=== PATIENT | male | born 1990 | race Caucasian/White ===

== ENCOUNTER 2017-12-07 19:27 | Day surgery (SDC) | payer OTHER ==
[~2017-12-07] VITALS: Ht 167.6 cm; Wt 124.3 kg
[~2017-12-07 19:27] MED LIST: PERCOCET 5-3251 EACH PO; ZYRTEC10 M3 PO
[2017-12-07 20:19] LABS: ABSOLUTE BASOPHIL COUNT 0.1 /CUMM (0.0-0.2); ABSOLUTE EOSINOPHIL COUNT 0 /CUMM (0.0-0.7); ABSOLUTE GRANULOCYTE CT 16.9 /CUMM (1.4-6.5); ABSOLUTE LYMPH COUNT 1.4 /CUMM (1.2-3.4); ABSOLUTE MONOCYTE COUNT 0.7 /CUMM (0.10-0.60); BASOPHIL % 0.4 % (0.0-2.0); EOSINOPHIL % 0.1 % (0-5); HEMATOCRIT 42.7 % (42-52); MEAN CORPUSCULAR HGB 29.5 PG (27.0-31.0); MEAN CORPUSCULAR HGB CONC 34.6 G/DL (33.0-37.0); MEAN CORPUSCULAR VOLUME 85.3 FL (80.0-94.0); MEAN PLATELET VOLUME 7.2 FL (7.4-10.4); PLATELET COUNT 350 /CUMM (130-400); RBC DISTRIBUTION WIDTH 12.8 % (11.5-14.5)
[2017-12-07 20:25] LABS: GRANULOCYTE % 88.7 % (42.2-75.2)
--- NOTE | 2017-12-07 21:25 | ED GI/GU/ABDOMINAL COMPLAINT ---
History of Present Illness General Chief Complaint: Abdominal Pain/Flank Pain Stated Complaint: RIGHT LQ PAIN Source: patient, family Exam Limitations: no limitations Vital Signs & Intake/Output Vital Signs & Intake/Output Vital Signs Date Time Temp Pulse Resp B/P B/P Pulse O2 O2 Flow FiO2 Mean Ox Delivery Rate 12/07 2018 100.1 90 20 140/84 98 Allergies Coded Allergies: lactase (02/03/16) Reconcile Medications Cetirizine HCl (Zyrtec) 10 MG TABLET 1 TAB PO DAILY ALLERGIES (Reported) Oxycodone HCl/Acetaminophen (Percocet 5-325 MG Tablet) 1 EACH TABLET 1-2 TAB PO Q6P PRN pain Triage Note: PER PT ABD PAIN TO RLQ SINCE 1045, GOTTEN PROGRESSIVELY WORSE THROUGHOUT DAY +N/V NO DIARRHEA PT WITH TEMP 100.1 IN TRIAGE LABS DRAWN AND URINE REQUESTED Triage Nurses Notes Reviewed? yes HPI: Patient presents with worsening right lower quadrant pain since yesterday. Positive nausea vomiting. No diarrhea. The pain is sharp and crampy in nature. There is no radiation. There are no aggravating or mitigating factors. He rates the pain at 7 out of 10. Past History Travel History Traveled to [place] past 21 day No Medical History Any Pertinent Medical History? none Neurological: NONE EENT: NONE Cardiovascular: NONE Respiratory: NONE Gastrointestinal: NONE Hepatic: NONE Renal: NONE Musculoskeletal: NONE Psychiatric: NONE Endocrine: NONE Surgical History Surgical History: non-contributory Psychosocial History What is your primary language Kinyarwanda Tobacco Use: Never used ETOH Use: occasional use Illicit Drug Use: denies illicit drug use Family History Hx Contributory? No Review of Systems Review of Systems Constitutional: Reports: no symptoms. EENTM: Reports: no symptoms. Respiratory: Reports: no symptoms. Cardiovascular: Reports: no symptoms. GI: Reports: see HPI, abdominal pain, nausea, vomiting. Genitourinary: Reports: no symptoms. Musculoskeletal: Reports: no symptoms. Skin: Reports: no symptoms. Neurological/Psychological: Reports: no symptoms. Hematologic/Endocrine: Reports: no symptoms. Immunologic/Allergic: Reports: no symptoms. All Other Systems: Reviewed and Negative Physical Exam Physical Exam General Appearance: well developed/nourished, alert, awake, anxious, moderate distress Head: atraumatic, normal appearance Eyes: Bilateral: PERRL, EOMI. Ears, Nose, Throat, Mouth: hearing grossly normal, DRY MUCOSA Neck: normal inspection, supple, full range of motion Respiratory: normal breath sounds, chest non-tender, no respiratory distress, lungs clear Cardiovascular: regular rate/rhythm, normal peripheral pulses Gastrointestinal: normal bowel sounds, soft, tenderness, NO REBOUND OR GUARDING Back: normal inspection, normal range of motion Extremities: normal range of motion Neurologic/Psych: no motor/sensory deficits, awake, alert, oriented x 3, normal gait, normal mood/affect Skin: intact, normal color, warm/dry Core Measures ACS in differential dx? No Sepsis Present: No Sepsis Focused Exam Completed? No Progress Differential Diagnosis: appendicitis, bowel obstruction, ureterolithiasis, UTI/ pyelo Plan of Care: Orders Procedure Date/time Status URINALYSIS 12/07 1932 Complete COMPREHENSIVE METABOLIC PANEL 12/07 1932 Complete CBC WITHOUT DIFFERENTIAL 12/07 1932 Complete Current Medications Sig/Ryan Start time Last Medication Dose Stop Time Status Admin Ampicillin Sodium/ 3,000 MG ONCE ONE 12/07 224 AC Sulbactam Sodium 12/07 2314 (Unasyn) Sodium Chloride 100 ML (Normal Saline 0.9%) Laboratory Tests 12/07/172038: Urinalysis LIGHT H, Urine Color YEL, Urine Clarity CLEAR, Urine pH 6.0, Ur Specific [place] >= 1.030, Urine Protein TRACE H, Urine Ketones NEG, Urine Nitrite NEG, Urine Bilirubin NEG, Urine Urobilinogen 0.2, Ur Leukocyte Esterase NEG, Ur Microscopic SEDIMENT EXAMINED, Urine RBC RARE, Urine WBC RARE, Urine Bacteria RARE H, Urine Mucus MOD H, Urine Hemoglobin NEG, Urine Glucose NEG 12/07/172010: Anion Gap 15, Estimated GFR > 60, BUN/Creatinine Ratio 14.4, Glucose 113 H, Calcium 10.1, Total Bilirubin 0.6, AST 37, ALT 63, Alkaline Phosphatase 46, Total Protein 8.1, Albumin 4.8, Globulin 3.3, Albumin/Globulin Ratio 1.5, CBC w Diff MAN DIFF ORDERED, RBC 5.00, MCV 85.3, MCH 29.5, MCHC 34.6, RDW 12.8, MPV 7.2 L, Gran % 88.7 H, Lymphocytes % 7.2 L, Monocytes % 3.6, Eosinophils % 0.1 , Basophils % 0.4, Absolute Granulocytes 16.9 H, Segmented Neutrophils 87 H, Band Neutrophils 2, Absolute Lymphocytes 1.4, Lymphocytes 5 L, Monocytes 6, Absolute Monocytes 0.7 H, Absolute Eosinophils 0, Absolute Basophils 0.1, Platelet Estimate VERIFIED BY SMEAR, Normocytic RBCs VERIFIED, Normochromic RBCs VERIFIED, Fld Total RBCs Counted 100 Diagnostic Imaging: Viewed by Me: CT Scan. Discussed w/RAD: CT Scan. Radiology Impression: PATIENT: MADELINE BAY PRESENT AGE: 26 PATIENT ACCOUNT NO: [id number] : 89 LOCATION: [facility] ORDERING PHYSICIAN: Blessing Montana MD SERVICE DATE: 12/07/17 EXAM TYPE: CAT - CT ABD & PELVIS W IV CONTRAST EXAMINATION: CT ABDOMEN AND PELVIS WITH CONTRAST CLINICAL INFORMATION: RLQ PAIN COMPARISON: None. TECHNIQUE: Multidetector volumetric imaging was performed from the superior aspect of the liver through the pubic symphysis following administration of 95 ml of Optiray 320 Sagittal and coronal reformatted images were obtained on the technologist workstation. DLP: 1203 mGy-cm FINDINGS: LUNG BASES: The visualized lung bases are unremarkable. LIVER, GALLBLADDER, AND BILIARY TREE: The liver is normal in size, shape, and attenuation. No focal hepatic lesion or biliary ductal dilatation is present. The gallbladder is unremarkable with no evidence of radiopaque gallstones, gallbladder wall thickening, or obvious pericholecystic inflammatory changes. PANCREAS: Unremarkable. SPLEEN: Unremarkable. ADRENAL GLANDS: Unremarkable. KIDNEYS AND URETERS: The kidneys are normal in size, shape , and attenuation. No hydronephrosis, hydroureter, or calculi seen. No perinephric stranding. BLADDER: Unremarkable. GASTROINTESTINAL TRACT: The small and large bowel are unremarkable. The appendix is abnormally thickened measuring up to 1 cm in size with mild periappendiceal inflammatory change consistent with early appendicitis. I do not appreciate any periappendiceal abscess or free air. ABDOMINAL WALL: No significant hernia is appreciated. LYMPHOVASCULAR STRUCTURES: No lymphadenopathy. The aorta is unremarkable. PELVIC VISCERA: Unremarkable. OSSEOUS STRUCTURES: Unremarkable. IMPRESSION: Abnormal thickened appendix with mild paraparesis inflammatory changes in the right lower quadrant concerning for acute appendicitis. 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 <Electronically signed in Other Vendor System> SIGNED BY: Sourav Silva MD 12/07/170 Initial ED EKG: none Departure Departure Disposition: STILL A PATIENT Condition: Stable Clinical Impression Primary Impression: Appendicitis Referrals: Unknown (PCP/Family) Departure Forms: Customer Survey General Discharge Information Observation Note Spoke With: Evans DUFF,Bryan Luis Physician Advisor Notified: ZINA DUFF,BLESSING Larry Place Patient In: Non-ED OBS Care Area Rationale for Observation: My rational for observation is as follows [nothing by mouth, IV fluids, IV antibiotics, surgical intervention].
--- NOTE | 2017-12-07 22:24 | CT SCAN REPORT ---
EXAMINATION: CT ABDOMEN AND PELVIS WITH CONTRAST CLINICAL INFORMATION: RLQ PAIN COMPARISON: None. TECHNIQUE: Multidetector volumetric imaging was performed from the superior aspect of the liver through the pubic symphysis following administration of 95 ml of Optiray 320 Sagittal and coronal reformatted images were obtained on the technologist workstation. DLP: 1203 mGy-cm FINDINGS: LUNG BASES: The visualized lung bases are unremarkable. LIVER, GALLBLADDER, AND BILIARY TREE: The liver is normal in size, shape, and attenuation. No focal hepatic lesion or biliary ductal dilatation is present. The gallbladder is unremarkable with no evidence of radiopaque gallstones, gallbladder wall thickening, or obvious pericholecystic inflammatory changes. PANCREAS: Unremarkable. SPLEEN: Unremarkable. ADRENAL GLANDS: Unremarkable. KIDNEYS AND URETERS: The kidneys are normal in size, shape, and attenuation. No hydronephrosis, hydroureter, or calculi seen. No perinephric stranding. BLADDER: Unremarkable. GASTROINTESTINAL TRACT: The small and large bowel are unremarkable. The appendix is abnormally thickened measuring up to 1 cm in size with mild periappendiceal inflammatory change consistent with early appendicitis. I do not appreciate any periappendiceal abscess or free air. ABDOMINAL WALL: No significant hernia is appreciated. LYMPHOVASCULAR STRUCTURES: No lymphadenopathy. The aorta is unremarkable. PELVIC VISCERA: Unremarkable. OSSEOUS STRUCTURES: Unremarkable. IMPRESSION: Abnormal thickened appendix with mild paraparesis inflammatory changes in the right lower quadrant concerning for acute appendicitis.
--- NOTE | 2017-12-07 23:28 | History & Physical Pre-Op ---
Twila Pratt 12/07/172320: General Information and HPI MD Statement: I have seen and personally examined MADELINE BAY and documented this H&P. The patient is a 26 year old M who presented with a patient stated chief complaint of [].ABDOMINAL PAIN Source of Information: patient Exam Limitations: no limitations History of Present Illness: Pt is a 26yo male who presents to the ED with 12 hours of abdominal pain and nausea. He was feeling fine this morning then suddenly around 11 am began having abdominal cramping which he thought was constipation. He had a small bm but later became nauseasted and vomited x 3 today. He was unable to keep any food down but did keep down some gatorade. His pain has never completely resolved and worsened at times to 8/10. He presented to the ED and a CT revealed inflammatory changes around a thickened appendix. Allergies/Medications Home Med list Cetirizine HCl (Zyrtec) 10 MG TABLET 1 TAB PO DAILY ALLERGIES (Reported) Oxycodone HCl/Acetaminophen (Percocet 5-325 MG Tablet) 1 EACH TABLET 1-2 TAB PO Q6P PRN pain Past History Medical History Neurological: NONE EENT: NONE Cardiovascular: NONE Respiratory: NONE Gastrointestinal: NONE Hepatic: NONE Renal: NONE Musculoskeletal: NONE Psychiatric: NONE Endocrine: NONE Other Medical Hx: Negative Surgical History Pertinent Surgical History: Left knee ACL Past Family/Social History Psychosocial History Primary Language: Greek Smoking Status: Never Smoked ETOH Use: occasional use Illicit Drug Use: denies illicit drug use Functional Ability ADLs Independent: dressing, eating, toileting, bathing. Ambulation: independent Employment History Employment: Employed Review of Systems Review of Systems: See HPI, otherwise unremarkable Exam & Diagnostic Data Last 24 Hrs of Vital Signs/I&O Vital Signs Date Time Temp Pulse Resp B/P B/P Pulse O2 O2 Flow FiO2 Mean Ox Delivery Rate 12/07 2320 97.9 87 16 117/77 97 Room Air 12/07 2018 100.1 90 20 140/84 98 Physical Exam: General: alert and oriented times three chest: clear bilaterally no r/r/w, RRR Abd: soft, nondistended, tender only to moderate-deep palpation of RLQ, otherwise nontender, good bs Ext: warm, 2+ DP bilaterally Last 24 Hrs of Labs/Bishop: Laboratory Tests 12/07/172038: Urinalysis LIGHT H, Urine Color YEL, Urine Clarity CLEAR, Urine pH 6.0, Ur Specific [place] >= 1.030, Urine Protein TRACE H, Urine Ketones NEG, Urine Nitrite NEG, Urine Bilirubin NEG, Urine Urobilinogen 0.2, Ur Leukocyte Esterase NEG, Ur Microscopic SEDIMENT EXAMINED, Urine RBC RARE, Urine WBC RARE, Urine Bacteria RARE H, Urine Mucus MOD H, Urine Hemoglobin NEG, Urine Glucose NEG 12/07/172010: Anion Gap 15, Estimated GFR > 60, BUN/Creatinine Ratio 14.4, Glucose 113 H, Calcium 10.1, Total Bilirubin 0.6, AST 37, ALT 63, Alkaline Phosphatase 46, Total Protein 8.1, Albumin 4.8, Globulin 3.3, Albumin/Globulin Ratio 1.5, CBC w Diff MAN DIFF ORDERED, RBC 5.00, MCV 85.3, MCH 29.5, MCHC 34.6, RDW 12.8, MPV 7.2 L, Gran % 88.7 H, Lymphocytes % 7.2 L, Monocytes % 3.6, Eosinophils % 0.1 , Basophils % 0.4, Absolute Granulocytes 16.9 H, Segmented Neutrophils 87 H, Band Neutrophils 2, Absolute Lymphocytes 1.4, Lymphocytes 5 L, Monocytes 6, Absolute Monocytes 0.7 H, Absolute Eosinophils 0, Absolute Basophils 0.1, Platelet Estimate VERIFIED BY SMEAR, Normocytic RBCs VERIFIED, Normochromic RBCs VERIFIED, Fld Total RBCs Counted 100 Diagnostic Data Other Results CT Abd: Abnormal thickened appendix with mild paraparesis inflammatory changes in the right lower quadrant concerning for acute appendicitis. Assessment/Plan Assessment/Plan: 26yo male with acute appendicitis keep in observation for Dr Krueger OR in am or sooner if needed serial exams pain meds zofran prn hep sc alps add PT/PTT/T&S EKG-pre op CXR-pre op As Ranked By This Provider Problem List: 1. Appendicitis Evans DUFF,Bryan 12/10/17 1057: General Information and HPI Allergies/Medications Allergies: Coded Allergies: lactose (Intermediate, ABDOMINAL PAIN 12/08/17) Attending MD Review Statement Attending Statement Attending MD Statement: examined this patient, discuss w/resident/PA/[employer], reviewed EMR data (avail), reviewed images Attending Assessment/Plan: 12-08-17 8 AM agree with above note CC: abdominal pain HPI: 26 yo non-diabetic non-smoker overweight male started having abdominal pain yesterday mid morning no prior episodes pain doesn't radiate it's not constant no dysuria, mostly in the right lower quadrant, it's relieved with analgesics no shakes / chills some nausea vomiting initially, no family history of appendicitis he did have a cold about 2 weeks ago the recent antibiotics no changes in bowel habits weight or appetite no unusual meal or straining. I've reviewed the [facility]. No history of GERD, PUD, bleeding problems, heart disease or issues with anesthesia. Family history of heart disease Constitutional: No fever, sweats or weight loss ENMT: No sore throat Cardiovascular: No chest pain, palpitations or leg swelling Respiratory: No shortness of breath, cough, or sputum or dyspnea on exertion GI: No GERD or bleeding per rectum : No dysuria or hematuria Musculoskeletal: No new muscle weakness, bone or joint pain Skin / Breast: No jaundice, rashes or itching Psychiatric: No history of drug or alcohol abuse no depression or anxiety Hematologic / lymphatic system: No problems with excessive bleeding, bruising, or blood clots Vital signs reviewed above stable low-grade temperature Constitutional: pleasant, no acute distress, conversant Eyes: sclera anicteric ENMT: ears and nose atraumatic, moist mucous membranes, good dentition, no lip lesions Neck: Supple, trachea is midline, no cervical or supraclavicular adenopathy and no palpable thyromegaly Cardiovascular: S1, S2, no murmurs, no peripheral edema Respiratory: clear to auscultation with normal respiratory effort and no intercostal retractions GI: abdomen soft, McBurney's point tenderness, nondistended, no palpable hepatosplenomegaly Extremities / lymphatics: symmetrically warm, free range of motion no peripheral edema, no cervical, supraclavicular, axillary, or inguinal adenopathy Musculoskeletal: Did not evaluate gait and station, no digital cyanosis, good muscle strength and tone no atrophy, motor grossly 5 out of 5 throughout Skin: no jaundice, no rashes warm, nondiaphoretic, no areas of erythema or induration Psychiatric: mood and affect are appropriate and alert and oriented to person place and time Labs reviewed with blood cell count [address] scan on PACS myself and shows a thickened inflamed appendix without free fluid or free air there is some stranding Impression is acute appendicitis. I explained to the patient that this is a potentially life-threatening infection for which I recommend an appendectomy. I feel antibiotics often alone are not enough and sometimes there is an occult malignancy. The severity of infection is related to the chance of perforation which usually increases after about 24 hours fortunately the patient is presenting earlier. Depending on what we find intraoperatively they may be discharged the same day or may need to stay for more IV antibiotics, at depends. I also discussed the possibility of a postoperative infection whether superficial or deep, this is also related to the initial severity and may also appear even a week later after an initial interval of well-being during the recovery. I explained the operation we usually do it laparoscopically rarely converting to open, depending on the amount of inflammation and whether the anatomy is very unusual all to avoid inadvertent injury to surrounding surrounding structures such as bowel and blood vessels and ureter. We also discussed the potential risks, benefits and alternatives to the procedure and surgery in general, issues that included but were not limited to, anesthetic risks hemorrhage requiring transfusion, the risk of transfusion itself, infection, heart attack, stroke, .
[2017-12-07 23:40] LABS: ABSOLUTE BASOPHIL COUNT 0.1 /CUMM (0.0-0.2); ABSOLUTE EOSINOPHIL COUNT 0 /CUMM (0.0-0.7); ABSOLUTE GRANULOCYTE CT 12.3 /CUMM (1.4-6.5); ABSOLUTE LYMPH COUNT 2.4 /CUMM (1.2-3.4); ABSOLUTE MONOCYTE COUNT 0.7 /CUMM (0.10-0.60); BASOPHIL % 0.5 % (0.0-2.0); EOSINOPHIL % 0.1 % (0-5); GRANULOCYTE % 79.4 % (42.2-75.2); HEMATOCRIT 38.6 % (42-52); MEAN CORPUSCULAR HGB 29.8 PG (27.0-31.0); MEAN CORPUSCULAR HGB CONC 35.2 G/DL (33.0-37.0); MEAN CORPUSCULAR VOLUME 84.7 FL (80.0-94.0); MEAN PLATELET VOLUME 7.2 FL (7.4-10.4); PLATELET COUNT 332 /CUMM (130-400); RBC DISTRIBUTION WIDTH 12.3 % (11.5-14.5); RED BLOOD CELL CT 4.56 /CUMM (4.70-6.10); WHITE BLOOD CELL COUNT 15.5 /CUMM (4.8-10.8)
--- NOTE | 2017-12-08 00:02 | RADIOLOGY REPORT ---
EXAMINATION: XR CHEST, 2 VIEWS CLINICAL INFORMATION: Preoperative. Appendectomy. COMPARISON: None. TECHNIQUE: PA and lateral views of the chest were obtained. FINDINGS: Minimal bibasilar atelectasis. No consolidation, pneumothorax, or pleural effusion. Cardiac and mediastinal contours are normal. Pulmonary vasculature is unremarkable. Trachea is midline. Osseous structures are unremarkable. IMPRESSION: Minimal bibasilar atelectasis. No acute pulmonary findings.
[2017-12-08 00:33] LABS: PTT 29 SEC (25-37)
[2017-12-08 06:54] VITALS: BP 109/56
--- NOTE | 2017-12-10 11:02 | Operative Report ---
Operative/Inv Procedure Report Surgery Date: 12/08/17 Name of Procedure: Laparoscopic appendectomy Pre-Operative Diagnosis: Acute appendicitis Post-Operative Diagnosis: Same Estimated Blood Loss: scant Surgeon/Willow Analyst: Evans DUFF,Bryan BOURNE Anesthesia: general endotracheal tube Operative/Procedure Note Note: Patient was placed on the OR table in the supine position. After successful induction of general anesthesia the patient's abdomen was prepped clipped and draped in the usual sterile fashion The left arm was tucked. Local anesthetic was injected at the top of the umbilicus and entry into the peritoneum was established via the open Rae technique: a one cm curved incision was made at the top of the umbilicus, the linea alba was secured between 2 pediatric Feliz clamps and incised vertically, 0-Vicryl stay sutures were placed on each side and then while retracting upwards, the peritoneal layer was entered sharply, then through that small opening, using an S retractor acting like a shoehorn, a 10 mm blunt trocar was inserted obliquely to the right and secured with the stay sutures. The gas was turned on to maximum of 15 mm, two 5 mm dissecting ports were then inserted, one suprapubic and one left lower quadrant, laterally. We used a local anesthetic needle to guide their trajectories, particular attention was given to avoid injury to the bowel, the bladder and the epigastric vessels. Then our attention was directed to the right lower quadrant, the small bowel was swept superiorly and medially, revealing the base of the cecum. An inflamed appendix was then mobilized by it from the lateral and inferior peritoneal attachments using cautery. Using a combination of a [place] dissector, peanut dissector and a Elkins clamp, a window was developed between the mesoappendix and the base of the appendix. This window is then used to divide the appendix at the base and the mesoappendix with a linear stapling device, separately, using an intestinal cartridge for the appendix and a vascular cartridge for the mesoappendix; the division of the appendix includes a small flange of cecal base. The appendix is lowered into an Endobag and set aside. The staple lines were checked for bleeding and small oozing was controlled with light zaps of the cautery. We deliberately irrigate the area including up by the liver and down in the pelvis, several rounds, checking the staple lines and each time to make sure that there is no ongoing bleeding. Next the instruments and the trochars and Endobag are removed, letting the gas out. We closed the umbilical fascial incision with a [id number] 0 vicryl suture, then the 3 skin incisions are closed with multiple interrupted subcuticular 4-0 Biosyn sutures, 3 for the umbilical, 1 each for the smaller ones, then covered with Mastisol, Steri-Strips and Band-Aids. EBL minimal Lap and sponge and sponge counts: correct Wound expectancy: infected IV fluids: crystalloid Complications: none Patient tolerated the procedure well was awakened and extubated and returned to the recovery room in satisfactory condition.
== END 2017-12-08 ==
LOC: ERH 19:27 → ERHI 23:38 → ERH 23:38 → STS 12-08 07:22 → ERHI 12-08 13:10 → CMPBEDREQ 12-08 15:49
PROVIDERS: Emergency Medicine; Physician Assistant Surgical
DX: K35.80 Unspecified acute appendicitis (principal)
CPT/HCPCS: 71046; 74177; 81001; 82436; 93005; 93010; 96361; 96374; 96375; J1644; J2405; J3490; J7042